=== PATIENT | male | born 1960 ===

== ENCOUNTER → 2024-09-16 16:29 | Outpatient (REF) | payer OTHER, SELFPAY | LOC: CLAB 16:29 | PROVIDERS: ATTENDING PHYSICIAN Surgery | DX: C44.519 Basal cell carcinoma of skin of other part of trunk (principal); C44.41 Basal cell carcinoma of skin of scalp and neck | CPT/HCPCS: 88305 ==

== ENCOUNTER → 2024-10-07 14:42 | Outpatient (REF) | payer OTHER, SELFPAY | LOC: CLAB 14:42 | PROVIDERS: ATTENDING PHYSICIAN Surgery; OTHER PHYSICIAN Family Medicine | DX: C44.41 Basal cell carcinoma of skin of scalp and neck (principal) | CPT/HCPCS: 88307 ==